=== PATIENT | male | born 1990 | race Caucasian/White ===

== ENCOUNTER 2018-06-27 13:00 | Emergency (ER) | payer OTHER ==
--- NOTE | 2018-06-27 13:47 | EDM.PDOC ---
ED HPI GENERAL MEDICAL PROBLEM - General Stated Complaint: SPLIT TOP LIP Time Seen by Provider: 06/27/18 13:30 Source of Information: Reports: Patient History Limitations: Reports: No Limitations - History of Present Illness INITIAL COMMENTS - FREE TEXT/NARRATIVE: 27-year-old male fell on his face injuring his upper lip. No dental injury, no loss of consciousness. Duration: Hour(s): (Within the last few hours) Location: Reports: Other (Upper lip) Associated Symptoms: Reports: No Other Symptoms - Related Data Allergies Allergy/AdvReac Type Severity Reaction Status Date / Time cephalexin [From Keflex] Allergy Rash Verified 06/27/18 13:49 Home Meds: Home Meds NK [No Known Home Meds] 06/27/18 [History] ED ROS GENERAL - Review of Systems Review Of Systems: See Below Constitutional: Denies: Fever HEENT: Denies: Vision Change Respiratory: Denies: Shortness of Breath GI/Abdominal: Denies: Nausea, Vomiting Neurological: Denies: Headache ED EXAM, SKIN/RASH Exam: See Below Exam Limited By: No Limitations General Appearance: Alert, No Apparent Distress Throat/Mouth: Other (Patient has a 1 cm fairly shallow laceration inside the upper lip centrally. Edges approximated well and the lip is in its natural position) Respiratory/Chest: No Respiratory Distress Course - Vital Signs Last Recorded V/S: Last Vital Signs Temp 97.0 F 06/27/18 13:44 Pulse 88 06/27/18 13:44 Resp 16 06/27/18 13:44 BP 112/64 06/27/18 13:44 Pulse Ox 98 06/27/18 13:44 - Re-Assessments/Exams Free Text/Narrative Re-Assessment/Exam: 06/27/18 13:45 This should heal quickly without sutures. He can recheck at any time if not healing satisfactorily. Departure - Departure Time of Disposition: 13:53 Disposition: Home, Self-Care 01 Condition: Good Clinical Impression: Lip laceration Qualifiers: Encounter type: initial encounter Qualified Code(s): S01.511A - Laceration without foreign body of lip, initial encounter - Discharge Information Instructions: Mouth Laceration, [id number] Referrals: Reinier Solitario MD [Primary Care Provider] - Forms: ED Department Discharge Care Plan Goals: Cool compresses or cold foods can help with swelling, ibuprofen may help with discomfort and your lip should heal fairly quickly. Recheck at any time if you do not feel you're healing satisfactorily.
== END 2018-06-27 14:00 | disposition home or self-care (01) ==
LOC: JP.ED 13:00
DX: S01.511A Laceration without foreign body of lip, initial encounter (principal); Z88.1 Allergy status to other antibiotic agents; V19.9XXA Pedal cyclist (driver) (passenger) injured in unspecified traffic accident, initial encounter
CPT/HCPCS: 99283

== ENCOUNTER 2024-06-30 07:10 | Emergency (ER) | payer MEDICAID, OTHER ==
[2024-06-30] MEDS: Bacitracin Oint 1 GM U/D Packet TOP ONE (08:25)
[2024-06-30] MEDS: Diphtheria,Pertussis(Acell),Tetanus Vaccine 0.5 ML Syringe IM ONE (08:25)
== END 2024-06-30 09:17 | disposition home or self-care (01) ==
LOC: JP.ED 07:10
DX: S00.83XA Contusion of other part of head, initial encounter (principal); Z23 Encounter for immunization; Z88.8 Allergy status to other drugs, medicaments and biological substances; X58.XXXA Exposure to other specified factors, initial encounter
CPT/HCPCS: 70110; 70110-26; 70160; 70160-26; 90471; 90715; 99283; 99283-25

== ENCOUNTER 2025-05-15 15:21 | Emergency (ER) | payer MEDICAID | END 2025-05-15 16:16 | disposition home or self-care (01) | LOC: JP.ED 15:21 | DX: L72.3 Sebaceous cyst (principal); L08.9 Local infection of the skin and subcutaneous tissue, unspecified; Z88.1 Allergy status to other antibiotic agents | CPT/HCPCS: 99283 ==